=== PATIENT | male | born 1950 | race Caucasian/White ===

== ENCOUNTER 2024-04-24 06:18 | Day surgery (SDC) | payer OTHER, SELFPAY | END 2024-04-24 15:01 | disposition home or self-care (01) | LOC: GI 06:18 | PROVIDERS: ATTENDING PHYSICIAN Internal Medicine Gastroenterology; FAMILY PHYSICIAN Family Medicine | DX: Z12.11 Encounter for screening for malignant neoplasm of colon (principal); K64.8 Other hemorrhoids; K57.30 Diverticulosis of large intestine without perforation or abscess without bleeding; Z86.0100 Personal history of colon polyps, unspecified; D12.2 Benign neoplasm of ascending colon | CPT/HCPCS: 45380; 88305 ==